=== PATIENT | female | born 1970 | race Two or more races ===

== ENCOUNTER 2017-03-20 11:55 | Day surgery (SDC) | payer BC ==
[~2017-03-20] VITALS: Ht 152.4 cm; Wt 83.7 kg
[2017-03-20 12:59] VITALS: Ht 152.4 cm; Wt 83.7 kg
[2017-03-20 14:19] VITALS: BP 127/68; PULSE 61; RESP 18
[2017-03-20] MEDS ORDERED: PROPOFOL 20 ML ONE (14:51)
--- NOTE | 2017-03-20 15:20 | GILP ---
DATE OF PROCEDURE: 03/20/2017 PROCEDURE: Esophagogastroduodenoscopy with biopsies. BRIEF HISTORY AND INDICATIONS: The patient is being evaluated for abdominal pain. PREMEDICATION: Monitored anesthesia care by anesthesiologist. SURGEON: Bolivar Amaro MD INSTRUMENT USED: Olympus panendoscope. TECHNIQUE: After informed consent, with the patient/relatives understanding the procedure, its indic ations, potential risks and complications, including but not limited to: allergic reaction, bleeding , perforation or infection, and after all pertinent questions were answered to the patients satisfac tion, the patient/relatives signed witnessed informed consent. Following this, premedication was ad ministered slowly IV push under careful cardiovascular and respiratory monitoring with pulse oximetr y, automatic blood pressure and bus driver/monitor. Once the sedative effect was achieved the patient was place in the left lateral decubitus, the panendoscope was introduced and advanced under visual contr ol. Careful examination of the upper gastrointestinal tract, both on insertion as well as withdrawal of the instrument disclosed the following findings: ESOPHAGUS: The distal esophagus shows erythema and edema of the mucosa of a mild degree. STOMACH: Upon entrance to the stomach, air was insufflated, the gastric ruggiero distended normally. The mucosa of the fundus, body and antrum of the stomach was carefully examined, shows erythema and edema of the mucosa of a moderate degree. Multiple erosions are also present. PYLORUS: The pylorus appears patent and within normal limits, with no evidence of gastric outlet ob struction. DUODENUM: The duodenal mucosa was carefully examined in the duodenal bulb as well as the second por tion of the duodenum and appears unremarkable with no evidence of duodenitis, ulcer or neoplasm. The instrument was then withdrawn, the patient tolerated the procedure well and was transfer out of the endoscopy suite awake, and in good condition to continue recovery under observation IMPRESSION: 1. Mild distal esophagitis. 2. Moderate erosive gastritis. Biopsies obtained, rule out Helicobacter pylori infection. PLAN: The patient will be treated with PPIs, i.e., omeprazole 40 mg daily. Further recommendation will depend on her clinical course as well as review of biopsies. Dictated By: BOLIVAR AMARO MS/HUONG Conf#: [id number] DID#: [id number] CC: BOLIVAR AMARO;*EndCC*
[2017-03-20 15:48] VITALS: BP 125/59; PULSE 63; RESP 15
== END 2017-03-20 16:29 | disposition home or self-care (01) ==
LOC: GIL 11:55
PROVIDERS: ATTEND Internal Medicine Gastroenterology
DX: K29.50 Unspecified chronic gastritis without bleeding (principal); K20.8 Other esophagitis; I10 Essential (primary) hypertension; E66.01 Morbid (severe) obesity due to excess calories; Z68.36 Body mass index [BMI] 36.0-36.9, adult; J45.909 Unspecified asthma, uncomplicated
CPT/HCPCS: 43239; 88305; 88312; Z7610

== ENCOUNTER 2017-04-06 19:09 | Emergency (ER) | payer BC ==
[~2017-04-06] VITALS: Wt 82.0 kg
[2017-04-06] MEDS ORDERED: ONDANSETRON 4 MG INJ IV STA (19:24)
[2017-04-06] MEDS ORDERED: morphine 4 MG/ML VIAL IV STA (19:24)
[2017-04-06] MEDS ORDERED: SOD CHLORIDE 0.9% 1,000 ML IV STA (19:24)
[2017-04-06] MEDS ORDERED: AMPICILLIN/SULB 3 GM/NS (PMX) 100 ML IVPB ONE (19:30)
[2017-04-06 19:45] LABS: ADD SCAN DIFF NO
[2017-04-06 19:48] LABS: BASOPHILS % 0.3 % (0.0-2.0); EOSINOPHILS # 0.1 10^3/ul (0.0-0.5); HEMATOCRIT 35.9 % (37.0-47.0); HEMOGLOBIN 11.8 g/dl (12.0-16.0); LYMPHOCYTES # 2.2 10^3/ul (0.8-2.9); LYMPHOCYTES % 18.7 % (15.0-51.0); MEAN CORPUSCULAR HEMOGLOBIN 26.8 pg (29.0-33.0); MEAN CORPUSCULAR HGB CONC 32.9 g/dl (32.0-37.0); MEAN CORPUSCULAR VOLUME 81.6 fl (82.0-101.0); MEAN PLATELET VOLUME 10.1 fl (7.4-10.4); MONOCYTES % 8.2 % (0.0-11.0); NEUTROPHIL # 8.2 10^3/ul (1.6-7.5); NEUTROPHILS % 71.4 % (39.0-77.0); PLATELET COUNT 267 10^3/UL (140-415); RED CELL DISTRIBUTION WIDTH 14.6 % (11.5-14.5); WHITE BLOOD COUNT 11.5 10^3/ul (4.8-10.8)
[2017-04-06 20:04] LABS: POTASSIUM 3.5 mmol/L (3.5-5.1)
[2017-04-06 20:06] LABS: CREATININE 0.59 mg/dl (0.44-1.00)
[2017-04-06 20:07] LABS: CALCIUM 8.7 mg/dl (8.4-10.2)
[2017-04-06 20:27] LABS: ALBUMIN 4.2 g/dl (3.3-4.9)
[2017-04-06 20:30] LABS: BILIRUBIN,INDIRECT 0.2 mg/dl (0-1.1); BILIRUBIN,TOTAL 0.2 mg/dl (0.2-1.3)
[2017-04-06] MEDS ORDERED: LIDOCAINE/MYLANTA 40 ML BTL PO ONE (20:30)
[2017-04-06] MEDS ORDERED: IOHEXOL 300MG/ML 150 ML BTL ONE (20:40)
[2017-04-06] MEDS ORDERED: SOD CHLORIDE 0.9% 100 ML ONE (20:40)
[2017-04-06] MEDS ORDERED: HYDROmorphONE 1 MG/ML SYG IV STA (20:59)
--- NOTE | 2017-04-06 21:24 | RADRPT ---
PROCEDURE: CT abdomen without contrast. CLINICAL INDICATION: Abdominal pain. TECHNIQUE: CT scan of the abdomen without contrast was performed on a multi-slice CT scanner . Oral contrast was also administered. Sagittal and coronal reformatted images were obtained from the axial source images. One or more of the following dose reduction techniques were used: - Automated exposure control. - Adjustment of the mA and/or kV according to patient size. - Use of iterative reconstruction technique. DLP 846.9 mGycm. CTDIvol 21.1 mGy COMPARISON: None. FINDINGS: Mild atelectasis is seen in the lung bases.. Numerous bilateral lower lung calcified granulomas are present more pronounced on the right side. There is partial visualization of mediastinal and right hilar calcified lymph nodes. There is a right upper quadrant fat-containing hernia present and the neck measures up to 3.7 cm in diameter without inflammatory changes. This may be incisional in nature. There is limited evaluatio n of the solid viscera for lack of IV contrast. There is normal density of the liver with no gross focal lesion or intrahepatic biliary ductal dila tation. The gallbladder is removed. The common duct is mildly prominent up to 11 mm in diameter. The spleen is unremarkable without mass. The adrenal glands are within normal limits without mass. The kidneys are symmetric bilaterally with evidence of renal or ureteral calculi. There is no hydro nephrosis or perinephric stranding. The pancreas is unremarkable without focal lesion or surrounding inflammatory changes. There is no bowel obstruction or focal bowel inflammation. The appendix is unremarkable. There is a fecal filled colon.. There is diverticulosis without diverticulitis. There is no free air free f luid. There are no enlarged lymph nodes. There is mild visible aortic atherosclerosis that has a tortuous appearance without aneurysmal dil atation. Mild degenerative changes are seen in the lumbar spine with no acute osseous abnormality. IMPRESSION: No evidence of bowel obstruction or inflammation. There is a fecal filled colon. There is diverticu losis without diverticulitis. Mild visible aortic atherosclerotic changes are present. Right upper quadrant fat-containing hernia is seen likely incisional in nature. Mildly prominent appearance the common duct may be related to postcholecystectomy physiology and can be correlated with bilirubin levels. RPTAT: AA .Jazmine Pelayo MD, MD Date Time Electronically viewed and signed by .Jazmine Pelayo MD, MD on 04/06/2017 21:24 .J/
[2017-04-06] MEDS ORDERED: DIPHENHYDRAMINE 50 MG INJ ONE (21:25)
[2017-04-06 21:33] VITALS: TEMP 98.7
--- NOTE | 2017-04-06 22:31 | RADRPT ---
PROCEDURE: CT scan of the neck with contrast. CLINICAL INDICATION: right face and neck pain, swelling TECHNIQUE: CT scan of the neck was performed. The patient was examined with the use of intravenou s administration of 100 cc of Isovue 300 iodinated contrast. No reported complications occurred. One or more of the following dose reduction techniques were used: Automated exposure control, Adjust ment of the mA and/or kV according to patient size, and/or use of iterative reconstruction technique . DOSE: CTDI = 11 mGy and the DLP = 220 mGy-cm. COMPARISON: None available FINDINGS: Ill-defined hypoattenuation of the right palatine tonsils and right pharyngeal mucosal space (series 3 image 20). No well-defined, drainable rim-enhancing fluid collection identified. Prominent right greater than left cervical lymph nodes are presumably reactive. The bilateral parotid and submandibular glands are unremarkable The thyroid gland is unremarkable. Normal-caliber epiglottis and aryepiglottic folds. No significant airway narrowing Streak artifact from the dental hardware obscures the oral cavity. The bilateral prestyloid parapharyngeal spaces and retropharyngeal spaces are unremarkable. The major cervical vasculature are patent. The visualized paranasal sinuses and mastoids are clear. Scattered degenerative changes of the cervical spine. The visualized lung apices are clear. IMPRESSION: Ill-defined hypoattenuation of the right palatine tonsils and right pharyngeal mucosal space is sugg estive of a phlegmon. No drainable neck abscess identified. Prominent right greater than left cervi ta lymph nodes are presumably reactive. Consider interval follow-up imaging as warranted. RPTAT: AA .Fuad Ramirez MD, MD Date Time Electronically viewed and signed by .Fuad Ramirez MD, MD on 04/06/2017 22:31 .T/
[2017-04-06] MEDS ORDERED: AMO500 PO (23:03)
[2017-04-06] MEDS ORDERED: IBUP-1542 PO (23:04)
[2017-04-06 23:26] VITALS: BP 122/64; PULSE 87; RESP 17
--- NOTE | 2017-04-07 01:27 | ERA ---
ER Documentation Chief Complaint Date/Time DATE: 04/06/17 Chief Complaint RIGHT SORE THROAT AND DIFFICULTY SWALLOWING ONSET YESTERDAY HPI The patient is a 46-year-old female, presenting to the ER because of right- sided sore throat for 1 day, associated with subjective fever and difficulty swallowing. She denies chills, facial pain, neck pain, chest pain, dyspnea, abdominal pain, vomiting, dysuria, diarrhea. She does not smoke nor drink The patient was initially seen by Dr. Lara who initiated a workup and treated her with antibiotic and pain medication Past medical history: Gastritis Past surgical history: Cholecystectomy, tubal ligation ROS All systems reviewed and are negative except as per history of present illness. Medications Home Meds Active Scripts Ibuprofen* (Motrin*) 600 Mg Tab, 600 MG PO Q6H Y for PAIN AND OR ELEVATED TEMP, #30 TAB Prov:POOJA ELLIS MD 04/06/17 Amoxicillin* (Amoxicillin*) 500 Mg Cap, 500 MG PO TID, #30 CAP Prov:POOJA ELLIS MD 04/06/17 Reported Medications [None] No Conflict Check 03/20/17 Allergies Allergies: Coded Allergies: No Known Allergy (Unverified , 03/20/17) PMhx/Soc Medical and Surgical Hx: pt denies Medical Hx History of Surgery: Yes (, cholecysectomy, tubal ligation) Anesthesia Reaction: No Hx Neurological Disorder: No Hx Respiratory Disorders: No Hx Cardiac Disorders: No Hx Psychiatric Problems: No Hx Miscellaneous Medical Probl: No Hx Alcohol Use: No Hx Substance Use: No Hx Tobacco Use: No Smoking Status: Never smoker Physical Exam Vitals Vital Signs Date Time Temp Pulse Resp B/P Pulse Ox O2 Delivery O2 Flow Rate FiO2 04/06/17 23:26 87 17 122/64 97 Room Air 04/06/17 21:33 98.7 88 18 133/78 97 Room Air 04/06/17 19:10 100.3 99 20 191/83 98 Physical Exam Const: No acute distress. Head: Atraumatic. Eyes: Normal Conjunctiva. ENT: Normal External Ears, Nose and Mouth. Tonsils are edematous and erythematous, no exudate, more on the right and the left Neck: Full range of motion. No meningismus. Resp: Clear to auscultation bilaterally. Cardio: Regular rate and rhythm, no murmurs. Abd: Soft, non distended, normal bowel sounds, non tender. Skin: No petechiae or rashes. Back: No midline or flank tenderness. Ext: No cyanosis, or edema. Neur: Awake and alert. No focal deficit Psych: Normal Mood and Affect. Result Diagram: 04/06/17193404/06/171934 Results 24 hrs Laboratory Tests Test 04/06/17 19:35 White Blood Count 11.510^3/ul Red Blood Count 4.4010^6/ul Hemoglobin 11.8g/dl Hematocrit 35.9% Mean Corpuscular Volume 81.6fl Mean Corpuscular Hemoglobin 26.8pg Mean Corpuscular Hemoglobin Concent 32.9g/dl Red Cell Distribution Width 14.6% Platelet Count 20263^3/UL Mean Platelet Volume 10.1fl Neutrophils % 71.4% Lymphocytes % 18.7% Monocytes % 8.2% Eosinophils % 1.0% Basophils % 0.3% Nucleated Red Blood Cells % 0.0/100WBC Neutrophils # 8.210^3/ul Lymphocytes # 2.210^3/ul Monocytes # 1.010^3/ul Eosinophils # 0.110^3/ul Basophils # 0.010^3/ul Nucleated Red Blood Cells # 0.010^3/ul Sodium Level 139mmol/L Potassium Level 3.5mmol/L Chloride Level 110mmol/L Carbon Dioxide Level 24mmol/L Anion Gap 9 Blood Urea Nitrogen 10mg/dl Creatinine 0.59mg/dl Glucose Level 95mg/dl Calcium Level 8.7mg/dl Total Bilirubin 0.2mg/dl Direct Bilirubin 0.00mg/dl Indirect Bilirubin 0.2mg/dl Aspartate Amino Transf (AST/SGOT) 21IU/L Alanine Aminotransferase (ALT/SGPT) 31IU/L Alkaline Phosphatase 91IU/L Total Protein 8.0g/dl Albumin 4.2g/dl Lipase 110U/L Current Medications Medications (Trade) Dose Ordered Sig/Augustine Route PRN Reason Start Time Stop Time Status Last Admin Dose Admin Sodium Chloride (NS) 1,000 ml @ 1,000 mls/hr Q1H STAT IV 04/06/17 19:24 04/06/17 20:23 DC 04/06/17 19:47 Morphine Sulfate (morphine) 4 mg ONCE STAT IV 04/06/17 19:24 04/06/17 19:26 DC 04/06/17 19:46 Ondansetron HCl 4 mg 4 mg ONCE STAT IV 04/06/17 19:24 04/06/17 19:26 DC 04/06/17 19:46 Ampicillin Sodium/ Sulbactam Sodium (Unasyn 3gm/NS (Pmx)) 100 ml @ 100 mls/hr ONCE ONCE IVPB 04/06/17 19:30 04/06/17 20:29 DC 04/06/17 20:08 Miscellaneous Medication (Gi Cocktail (2)) 40 ml ONCE ONCE PO 04/06/17 20:30 04/06/17 20:31 DC 04/06/17 20:15 IV Flush 10 ml 10 ml STK-MED ONCE .ROUTE 04/06/17 20:40 04/06/17 20:41 DC 04/06/17 21:18 Sodium Chloride (NS) 100 ml @ ud STK-MED ONCE .ROUTE 04/06/17 20:40 04/06/17 20:41 DC 04/06/17 21:19 Iohexol (Omnipaque 300mg/ ml) 150 ml STK-MED ONCE .ROUTE 04/06/17 20:40 04/06/17 20:41 DC 04/06/17 21:19 Hydromorphone HCl (Dilaudid) 0.5 mg ONCE STAT IV 04/06/17 20:59 04/06/17 21:00 DC 04/06/17 21:31 Diphenhydramine HCl (Benadryl) 50 mg STK-MED ONCE .ROUTE 04/06/17 21:25 04/06/17 21:26 DC Procedures/[place] [address] Radiology Main Line: [phone] DIAGNOSTIC IMAGING REPORT Patient: DARIUS COATES : 1970 Age: 46 Sex: F MR #: [id number] DOS: 04/06/17 0000 Ordering MD: GEOVANY LARA DO Location: E/R Room/Bed: PROCEDURE: CT scan of the neck with contrast. CLINICAL INDICATION: right face and neck pain, swelling TECHNIQUE: CT scan of the neck was performed. The patient was examined with the use of intravenous administration of 100 cc of Isovue 300 iodinated contrast. No reported complications occurred. One or more of the following dose reduction techniques were used: Automated exposure control, Adjustment of the mA and/or kV according to patient size, and/or use of iterative reconstruction technique. DOSE: CTDI = 11 mGy and the DLP = 220 mGy-cm. COMPARISON: None available FINDINGS: Ill-defined hypoattenuation of the right palatine tonsils and right pharyngeal mucosal space (series 3 image 20). No well-defined, drainable rim-enhancing fluid collection identified. Prominent right greater than left cervical lymph nodes are presumably reactive. The bilateral parotid and submandibular glands are unremarkable The thyroid gland is unremarkable. Normal-caliber epiglottis and aryepiglottic folds. No significant airway narrowing Streak artifact from the dental hardware obscures the oral cavity. The bilateral prestyloid parapharyngeal spaces and retropharyngeal spaces are unremarkable. The major cervical vasculature are patent. The visualized paranasal sinuses and mastoids are clear. Scattered degenerative changes of the cervical spine. The visualized lung apices are clear. IMPRESSION: Ill-defined hypoattenuation of the right palatine tonsils and right pharyngeal mucosal space is suggestive of a phlegmon. No drainable neck abscess identified. Prominent right greater than left cervical lymph nodes are presumably reactive. Consider interval follow-up imaging as warranted. RPTAT: AA .Fuad Ramirez MD, Date Time Electronically viewed and signed by .Fuad Ramirez MD, on 04/06/2017 22:31 .T/ CC: GEOVANY LARA DO [place] [id number] Radiology Main Line: [phone] DIAGNOSTIC IMAGING REPORT Patient: DARIUS COATES : 1970 Age: 46 Sex: F MR #: [id number] DOS: 04/06/17 0000 Ordering MD: GEOVANY LARA DO Location: E/R Room/Bed: PROCEDURE: CT abdomen without contrast. CLINICAL INDICATION: Abdominal pain. TECHNIQUE: CT scan of the abdomen without contrast was performed on a multi- slice CT scanner . Oral contrast was also administered. Sagittal and coronal reformatted images were obtained from the axial source images. One or more of the following dose reduction techniques were used: - Automated exposure control. - Adjustment of the mA and/or kV according to patient size. - Use of iterative reconstruction technique. DLP 846.9 mGycm. CTDIvol 21.1 mGy COMPARISON: None. FINDINGS: Mild atelectasis is seen in the lung bases.. Numerous bilateral lower lung calcified granulomas are present more pronounced on the right side. There is partial visualization of mediastinal and right hilar calcified lymph nodes. There is a right upper quadrant fat-containing hernia present and the neck measures up to 3.7 cm in diameter without inflammatory changes. This may be incisional in nature. There is limited evaluation of the solid viscera for lack of IV contrast. There is normal density of the liver with no gross focal lesion or intrahepatic biliary ductal dilatation. The gallbladder is removed. The common duct is mildly prominent up to 11 mm in diameter. The spleen is unremarkable without mass. The adrenal glands are within normal limits without mass. The kidneys are symmetric bilaterally with evidence of renal or ureteral calculi. There is no hydronephrosis or perinephric stranding. The pancreas is unremarkable without focal lesion or surrounding inflammatory changes. There is no bowel obstruction or focal bowel inflammation. The appendix is unremarkable. There is a fecal filled colon.. There is diverticulosis without diverticulitis. There is no free air free fluid. There are no enlarged lymph nodes. There is mild visible aortic atherosclerosis that has a tortuous appearance without aneurysmal dilatation. Mild degenerative changes are seen in the lumbar spine with no acute osseous abnormality. IMPRESSION: No evidence of bowel obstruction or inflammation. There is a fecal filled colon. There is diverticulosis without diverticulitis. Mild visible aortic atherosclerotic changes are present. Right upper quadrant fat-containing hernia is seen likely incisional in nature. Mildly prominent appearance the common duct may be related to postcholecystectomy physiology and can be correlated with bilirubin levels. RPTAT: AA .Jazmine Pelayo MD, MD Date Time Electronically viewed and signed by .Jazmine Pelayo MD, MD on 04/06/2017 21:24 .J/ CC: GEOVANY LARA DO MEDICAL MAKING DECISION: The patient is a 46-year-old female, presenting with acute tonsillitis. She was treated by Dr. Lara with Unasyn IV, morphine 4 mg IV and Dilaudid 0.5 mg IV for pain and Zofran 4 mg IV for nausea and GI cocktail. According to him she complains of abdominal pain after receiving morphine, therefore he ordered the abdominal and pelvic CT The differential diagnoses considered include but are not limited to tonsillar abscess, pharyngeal cellulitis, pharyngeal abscess Departure Diagnosis: Primary Impression: Tonsillitis Additional Impression: Anemia Condition: Good Patient Instructions: When Your Child Has Pharyngitis or Tonsillitis Additional Instructions: Call your primary care doctor TOMORROW for an appointment during the next 2-3 days.See the doctor sooner or return here if your condition worsens before your appointment time. She was discharged with amoxicillin and Motrin The patient's blood pressure was elevated (>120/80) but appears stable without evidence of hypertension emergency or urgency. The patient was counseled about the risks of hypertension and urged to pursue outpatient monitoring and therapy within a week with their primary care physician. POOJA ELLIS MD April 07, 2017 01:27
== END 2017-04-06 23:30 | disposition home or self-care (01) ==
LOC: E/R 19:09
DX: J03.90 Acute tonsillitis, unspecified (principal); D64.9 Anemia, unspecified
CPT/HCPCS: 70491; 74150; 80048; 80076; 83690; 85025; 87040; J0295; J1170; J1200; J2270; J2405; J7030; Q9967; Z7610; 36415; 96374; 96375

== ENCOUNTER 2018-01-02 22:20 | Emergency (ER) | END 2018-01-03 15:38 | disposition home or self-care (01) ==

== ENCOUNTER 2018-07-08 04:54 | Emergency (ER) | END 2018-07-08 10:21 | disposition home or self-care (01) ==

== ENCOUNTER 2019-07-27 07:31 | Day surgery (SDC) | payer BC ==
[2019-07-27] VITALS (9 sets, daily range): BP systolic 121–133; BP diastolic 71–96; PULSE 62–80; RESP 14–21
[~2019-07-27] VITALS: Ht 154.9 cm; Wt 73.5 kg
[~2019-07-27 07:31] MED LIST: ASPI-817 PO; FENOFIBRATE; GEMF600T8 PO; ISOS30TA67 PO; METO-335 PO; PANT40TA3 PO; PROPRANOLOL; [UNRECOGNIZED DRUG - CODE] PO
[2019-07-27] MEDS ORDERED: PROPOFOL 40 ML ONE (10:46)
[2019-07-27] MEDS ORDERED: LIDOCAINE 100 MG SYRINGE ONE (10:46)
[2019-07-27] MEDS ORDERED: GLYCOPYRROLATE 0.4 MG INJ ONE (10:46)
[2019-07-27] MEDS ORDERED: EPINEPHrine 0.1 MG/ML SYG ONE (12:18)
== END 2019-07-27 13:02 | disposition home or self-care (01) ==
LOC: GIL 07:31
PROVIDERS: ATTEND Internal Medicine Gastroenterology
DX: Z12.11 Encounter for screening for malignant neoplasm of colon (principal); D12.5 Benign neoplasm of sigmoid colon; K64.8 Other hemorrhoids; K64.4 Residual hemorrhoidal skin tags; I10 Essential (primary) hypertension; I25.10 Atherosclerotic heart disease of native coronary artery without angina pectoris; J45.909 Unspecified asthma, uncomplicated
CPT/HCPCS: 45385; 84703; J0171; J2001; Z7610; 88305